=== PATIENT | male | born 1990 | race Caucasian/White ===

== ENCOUNTER 2016-11-18 16:09 | Emergency (ER) | payer BC ==
[~2016-11-18] VITALS: Ht 185.4 cm; Wt 118.0 kg
[2016-11-18 16:21] VITALS: BP 144/88
[2016-11-18] MEDS ORDERED: BACITRACIN ZINC OINT UDPKT TOP ONE (17:15)
[2016-11-18] MEDS ORDERED: LIDOCAINE HCL 1% 20ML VIAL (Pyxis) INJ MC ONE (17:15)
== END 2016-11-18 17:53 | disposition home or self-care (01) ==
LOC: ER 16:21
DX: S61.210A Laceration without foreign body of right index finger without damage to nail, initial encounter (principal); W22.8XXA Striking against or struck by other objects, initial encounter; Y93.89 Activity, other specified; Y99.9 Unspecified external cause status; Y92.89 Other specified places as the place of occurrence of the external cause
CPT/HCPCS: 12001; 99283; J3490